=== PATIENT | female | born 1985 | race Caucasian/White ===

== ENCOUNTER 2020-09-22 10:04 | Outpatient (CLI) | payer BC, SELFPAY ==
[2020-09-22 19:58] LABS: Hepatitis B Surface Antigen Negative (Negative)
[2020-09-22 20:08] LABS: HIV 1/2 Ab P24 Ag Result Negative (Negative)
[2020-09-22 20:15] LABS: Hepatitis C Virus Antibody Negative (Negative)
[2020-09-23 10:21] LABS: Rapid Plasma Reagin Non-Reactive (NonReactive)
[2020-09-29 14:48] LABS: HSV 1 IgM Screen Negative (Negative); HSV 2 IgM Screen Negative (Negative)
== END 2020-09-22 10:05 | disposition home or self-care (01) ==
LOC: ANHBWCLAB 10:08
PROVIDERS: Visit Provider Student in an Organized Health Care Education/Training Program
DX: Z11.3 Encounter for screening for infections with a predominantly sexual mode of transmission (principal)
CPT/HCPCS: 36415; 86592; 86695; 86696; 86703; 86803; 87340; G0432